=== PATIENT | male | born 1955 | race Caucasian/White ===

== ENCOUNTER 2024-10-24 16:34 | Emergency (ER) | payer MEDICARE, SELFPAY ==
[2024-10-24 16:38] VITALS: BP 122/83; PULSE 74; RESP 18; TEMP 37.1; O2SAT 98; BMI 24.7
[2024-10-24 16:41] VITALS: BP 122/83; PULSE 74; RESP 18; TEMP 37.1; O2SAT 98
--- NOTE | 2024-10-24 17:12 | EKG12_ITS ---
Test Reason : GENERAL Blood Pressure : */* mmHG Vent. Rate : 71 BPM Atrial Rate : 71 BPM P-R Int : 150 ms QRS Dur : 84 ms QT Int : 362 ms P-R-T Axes : 48 0 42 degrees QTcB Int : 393 ms Normal sinus rhythm Normal ECG Confirmed by Jr Wagner ([id number]), videotape editor VIELKA SHEARER ([id number]) on 10/27/2024 12:05:16 PM Referred By: DELMI Confirmed By: Jr Wagner
--- NOTE | 2024-10-24 17:13 | EX.ED.DYSGE1 ---
HPI History of Present Illness Chief Complaint: General Illness Informant: patient Onset/Context/Timing Onset: Today, Yesterday and Days Timing: Continuous Current Severity: Mild Maximum Severity: Mild Narrative Narrative: 69-year-old male history of hypertension for which she takes lisinopril and COPD for which she has 2 inhalers. Had a recent URI, but felt better on Wednesday. Wednesday and today symptoms has not felt well he feels weak all over somewhat lightheaded. Nonproductive cough. No fever. No vomiting or diarrhea. No dysuria or hematuria. Denies any chest or abdominal pain. Prior similar symptoms: Yes Recent Illness/Hospitalization: No PFSH PFSH Medical History Hypertension Allergy/AdvReac Type Severity Reaction Status Date / Time No Known Allergies Allergy Verified 10/24/24 16:37 Social History household members: spouse Smoking Status: Never smoker ROS ROS ED ROS Narrative Cough. Weakness. Constitutional Constitutional ED: Denies chills or fever(s) Eyes Eyes: Denies blurry vision ENT ENT ED: Denies ear pain Cardiovascular Cardiovascular: Denies chest pain Respiratory/Chest Respiratory/Chest: Reports cough; Denies dyspnea, dyspnea on exertion or sputum Gastrointestinal Gastrointestinal: Denies abdominal pain, constipation, diarrhea, melena, nausea or vomiting Genitourinary Genitourinary ED: Denies dysuria or hematuria Musculoskeletal Musculoskeletal: Denies arthralgias or back pain Integumentary Denies abscess or Abrasions Neurologic Neurologic: Denies headache(s) Psychiatric Psychiatric: Denies anxiety Endocrine Endocrinology: Denies cold intolerance Hematologic/Lymphatic Hematologic/Lymphatic: Reports none Allergic/Immunologic Allergic/Immunologic ED: Denies mouth swelling, tongue swelling or urticaria EXAM Physical Exam Narrative Exam Narrative: 69-year-old male no acute distress. Vital signs stable afebrile. Pulse ox 98% on room air no hypoxia. No distress. H EENT exam pupils round reactive light. Moist mucous membranes. Left upper premolar is loose. No gingivitis. He does have some cavities. Neck nontender. No lymphadenopathy. No meningismus. Lungs he has coarse breath sounds on the right lung base. Left is clear. Heart regular rhythm rate about 70 no murmur. Chest wall ribs nontender. Abdomen soft nontender. No peritoneal signs. Moving all 4 extremities. Nontender no edema. Normal strength. Normal range of motion. Back nontender. Skin unremarkable. No rashes. Neurologically is awake alert. Answering questions following commands. Const Vital Signs: 10/24/24 16:38 10/24/24 16:41 10/24/24 16:51 Temperature 98.8 F 98.8 F Temperature Source Oral Oral Pulse Rate 74 74 Respiratory Rate 18 18 Respiratory Effort Normal Non-Labored Respiratory Pattern Normal Blood Pressure 122/83 H 122/83 H Blood Pressure Mean 96 96 Pulse Ox 98 98 Oxygen Delivery Method Room Air Room Air Positive well nourished and well developed; Negative for obese, cachectic, contractures or unkempt General Appearance ED: well developed and NAD; Negative for unkempt, cachectic, contractures, cyanotic, diaphoretic or pallor Nutritional Appearance: Negative for cachectic or obese HEENT Reports moist mucous membranes Negative for trauma or tenderness Eyes PERRL and EOMs intact bilaterally General Eye ED: Negative for pale conjunctiva or scleral icterus Neck no lymphadenopathy, supple and no JVD Chest Wall inspection of chest normal and palpation of chest normal Resp normal respiratory effort and No clear to auscultation bilaterally Resp Narrative: Coarse breath sounds right lung base. Auscultation: Negative for rhonchi or wheezes Cardio regular rate, regular rhythm, S1 normal heart sound, S2 normal heart sound and no murmurs GI normal to inspection, nondistended, normoactive bowel sounds, non-tender, non-distended and no masses Auscultation: normoactive bowel sounds Palpation: soft; Negative for tender, guarding or rebound tenderness present Back/Spine no CVA tenderness General Back: Negative for CVA tenderness Cervical Spine: Negative for cervical spine tenderness Thoracic Spine / Upper Back: Negative for thoracic spinal tenderness or paraspinal muscle tenderness Lumbar Spine / Lower Back: Negative for lumbar spinal tenderness Extremity normal to inspection General Extremety ED: Negative for edema or tenderness General Extremity: Negative for edema Neuro oriented x3 and CN's II-XII intact bilaterally Sensorium / Orientation: alert; Negative for orientation impaired, lethargic or stuporous Motor Exam: strength 5/5 throughout Psych mental status grossly normal Appearance: Negative for unkempt Skin no rashes or lesions noted, no wounds and skin turgor normal General Skin Exam: Negative for jaundice or pallor Lesions: No lesion noted Rashes: No rashes noted Trauma: Negative for abrasion Wounds: Negative for wounds noted MDM MDM MDM Narrative Medical decision making narrative: 69-year-old male generalized weakness with recent URI. Could be a viral syndrome such as COVID or flu. Rule out pneumonia. Screening labs, chest x-ray and EKG will be obtained. His exam is benign other than coarse breath sounds in his right lung base. He will be given IV fluids. Repeat exam 6:37 PM patient doing well. Exam is benign and unchanged. We went over his test results. He will be discharged home with outpatient follow-up. History & Record Review Discussion w/independent historian: Patient Additional record(s) reviewed:: No prior records Lab Data Attestation: I reviewed the patient's lab results. Lab results narrative: CBC shows a white count of 12. H&H 15 and 44. Platelets 302. Electrolytes show sodium 138. Gap 9. BUN of 18 creatinine 1.25. Glucose 112. Chest x-ray negative. Labs: Laboratory Results - last 24 hr 10/24/24 16:48 WBC 12.0 H RBC 4.77 Hgb 15.1 Hct 44.3 MCV 92.9 MCH 31.7 MCHC 34.1 RDW Std Deviation 43.9 RDW Coeff of Shamar 12.9 Plt Count 302 MPV 10.2 Immature Gran % (Auto) 1.100 H Neut % (Auto) 73.7 H Lymph % (Auto) 16.8 L Rogers % (Auto) 7.4 Eos % (Auto) 0.7 Baso % (Auto) 0.3 Absolute Neuts (auto) 8.9 H Absolute Lymphs (auto) 2.01 Nucleated RBC % 0 Sodium 138 Potassium 3.7 Chloride 102 Carbon Dioxide 27.3 Anion Gap 9 BUN 18 Creatinine 1.25 H Estim Creat Clear Calc 57.35 Est GFR (MDRD) Non-Af 63 BUN/Creatinine Ratio 14.7 Glucose 112 H Calcium 8.8 Radiography Chest X-Ray - ED: 2 View, Read by ED Physician, Normal, Heart, Lungs, Mediastinum, Bony Structures, No Acute Disease and Chronic Changes Diagnostic Testing: Clinical Impression(s) from Imaging Studies Chest X-Ray 10/24/24 18:00 IMPRESSION: NO ACUTE FINDINGS. Electronically Signed By: Azam rivers 10/24/2024 18:13 Reading [facility] Chest x-ray, 2 views, AP and lateral, interpreted both by myself and the radiologist shows no acute abnormality. Normal cardiac silhouette and lung waters. No pneumonia. No effusions. Rhythm Strip Rhythm Strip: Sinus Rhythm Rate: 71 Ectopy: None EKG Initial EKG: Attestation: I personally reviewed and interpreted this EKG as follows: Interpretation: Sinus Rhythm Comments: Normal sinus rhythm rate of 71 no acute signs of CO nor ischemia. Normal EKG. Discharge Plan Triage Chief Complaint: General Illness ED Provider: Gorge Miller Dx/Rx/DC Orders Clinical Impression: Generalized weakness, Viral syndrome Instructions: ED Viral Syndrome (Adult) Primary Care Provider: ABEBA MILIAN Referrals: ABEBA MILIAN [Other] - 3-5 Days if not improving Activity Restrictions/Additional Instructions: Plenty of fluids and rest. Follow-up with your doctor if not improving. Return if worse. Print Language: Pashto Disposition Disposition: Home, Self Care
[2024-10-24] MEDS: 0.9% Normal Saline (1000mL) 1,000 ML 1000 ML IV (17:18)
[2024-10-24 17:37] VITALS: O2SAT 98
[2024-10-24 17:38] LABS: Absolute Lymphocyte Count 2.01 X10^3/uL (0.83-4.51); Absolute Neutrophil Count 8.9 X10^3/uL (2.0-7.7); Basophil# 0.04 X10^3/uL; Basophil% 0.3 % (0-1); Eosinophil# 0.08 X10^3/uL; Eosinophils% 0.7 % (0-5); Hematocrit 44.3 % (40-54); Hemoglobin 15.1 g/dL (13.0-16.5); Lymphocyte # 2.01 X10^3/ul (0.83-4.51); Lymphocyte % 16.8 % (19-41); Mean Corp Hgb Conc 34.1 g/dL (32-36); Mean Corpuscular Hgb 31.7 pg (27.0-32.0); Mean Corpuscular Volume 92.9 fL (80-94); Mean Platelet Vol. 10.2 fl (6.2-12.0); Monocyte# 0.89 X10^3/uL; Monocyte% 7.4 % (0-10); NRBC Flagged by Analyzer 0 % (0-5); Neutrophil # 8.85 X10^3/uL (2.7-7.7); Neutrophil % 73.7 % (47-70); Platelet Count 302 K/mm3 (150-450); RBC Distribution Width CV 12.9 % (11.6-14.6); RBC Distribution Width SD 43.9 fl (35.1-43.9); Red Blood Count 4.77 M/mm3 (4.6-6.2)
[2024-10-24 17:53] LABS: Anion Gap 9 (5-15); BUN 18 mg/dL (4-19); BUN/Creat Ratio 14.7 RATIO (10-20); Calcium,Total 8.8 mg/dL (7.6-11.0); Carbon Dioxide 27.3 mmol/L (21.0-32.0); Chloride 102 mmol/L (98-108); Creatinine, Serum 1.25 mg/dL (0.70-1.20); EST Glomerular Filtration Rate 63 (>60); Estimated Creatinine Clearance 57.35 ml/min (50-250); Glucose 112 mg/dL (70-99); Potassium 3.7 mmol/L (3.3-5.1); Sodium Level 138 mmol/L (133-145)
--- NOTE | 2024-10-24 18:00 | RAD_ITS ---
PROCEDURE: CHEST PA AND LATERAL 10/24/2024 REASON FOR EXAM: COUGH TECHNIQUE: Frontal and lateral views of the chest. COMPARISON: None FINDINGS: Hardware: None Heart: The heart size is normal. Mediastinum: The mediastinal contour is unremarkable. Lungs: Bibasilar atelectasis. No focal consolidation. No pneumothorax. No pleural effusion. Bones: Degenerative changes are identified within the thoracic spine. RAD/Chest PA and Lateral IMPRESSION: NO ACUTE FINDINGS. Reading [facility]
[2024-10-24 18:37] VITALS: BP 122/83; PULSE 78; RESP 18; O2SAT 98
[2024-10-24 18:46] VITALS: BP 122/83; PULSE 78; RESP 18; TEMP 36.8; O2SAT 98
== END 2024-10-24 18:46 | disposition home or self-care (01) ==
PROVIDERS: Emergency Provider Emergency Medicine; Visit Provider Emergency Medicine
DX: R53.1 Weakness (principal); B34.9 Viral infection, unspecified; I10 Essential (primary) hypertension; Z79.899 Other long term (current) drug therapy
CPT/HCPCS: 71046; 80048; 85025; 87631; 93005; 96360; 99283; A4216